=== PATIENT | female | born 1985 | race Caucasian/White ===

== ENCOUNTER 2019-04-24 23:57 | Emergency (ER) | payer MEDICAID, OTHER ==
[~2019-04-24] VITALS: Ht 162.6 cm; Wt 52.6 kg
--- NOTE | 2019-04-25 00:50 | NUR ---
PATIENT WALKED IN FOR ABSCESS ON RIGHT UNDER ARM, PANIFUL TO TOUCH.
[2019-04-25] MEDS ORDERED: LIDOCAINE 1%-EPI 1:100,000 20 ML VIAL TP ONE (01:00)
--- NOTE | 2019-04-25 01:05 | NUR ---
DR. RYAN AT BEDSIDE FOR MSE.
--- NOTE | 2019-04-25 01:45 | NUR ---
PATIENT WOUND SITE CLEANSED WITH NS, PAT DRY, AND REINFORCED WITH 4 X 4 GAUZE. PT TOLERATED WELL. Patient discharged to home in stable conditon. Written and verbal after care instructions given. Patient verbalizes understanding of instructions. PATIENT WALKED OUT IN STABLE CONDITION.
[2019-04-25 02:03] VITALS: BP 115/77
== END 2019-04-25 01:55 | disposition home or self-care (01) ==
LOC: ER 04-25 00:01
DX: L02.411 Cutaneous abscess of right axilla (principal); L03.113 Cellulitis of right upper limb; F31.9 Bipolar disorder, unspecified
CPT/HCPCS: 10060; 99283; J3490; A4663

== ENCOUNTER 2023-08-18 10:39 | Emergency (ER) | payer MEDICAID ==
[~2023-08-18] VITALS: Ht 162.6 cm; Wt 52.6 kg
[2023-08-18 11:06] VITALS: O2SAT 96
[2023-08-18] MEDS ORDERED: predniSONE 50 MG TABLET PO ONE (13:15)
[2023-08-18] MEDS ORDERED: IBUPROFEN 400 MG TABLET PO ONE (13:15)
[2023-08-18] MEDS ORDERED: DEXAMETHASONE SOD PHOSPHATE 4 MG INJ IV ONE (13:15)
[2023-08-18] MEDS ORDERED: IV NORMAL SALINE 1000 ML BAG IV ONE (13:15)
[2023-08-18] MEDS ORDERED: CLINDAMYCIN HCL 150 MG CAPSULE PO ONE (13:15)
[2023-08-18] MEDS ORDERED: CLINDAMYCIN PHOSPHATE IV 600 MG in IV DEXTROSE 5% 100 ML IV ONE (13:15)
[2023-08-18] MEDS ORDERED: CLIN300C12 PO (13:20)
[2023-08-18] MEDS ORDERED: predniSONE 50 MG TABLET ONE (13:41)
[2023-08-18] MEDS ORDERED: IBUPROFEN 400 MG TABLET ONE (13:41)
[2023-08-18] MEDS ORDERED: CLINDAMYCIN HCL 300 MG CAPSULE ONE (13:42)
[2023-08-18 13:45] LABS: BASOPHILS % (AUTO) 0.2 % (0.0-2.0); EOSINOPHILS # (AUTO) 0.1 K/uL (0.0-0.7); EOSINOPHILS % (AUTO) 0.5 % (0.0-7.0); HEMATOCRIT 41.8 % (31.2-41.9); HEMOGLOBIN 13.9 g/dL (10.9-14.3); LYMPHOCYTES # (AUTO) 2.3 K/uL (0.8-4.8); LYMPHOCYTES % (AUTO) 14.3 % (20.5-51.5); MEAN CORPUSCULAR HGB CONC 33 g/dL (32.3-35.6); MEAN CORPUSCULAR VOLUME 84.6 fL (75.5-95.3); MONOCYTES % (AUTO) 6.4 % (0.0-11.0); NEUTROPHILS # (AUTO) 12.5 K/uL (1.8-8.9); NEUTROPHILS % (AUTO) 78.6 % (38.5-71.5); PLATELET COUNT (AUTO) 297 K/uL (179-408); RED BLOOD CELL COUNT(AUTO) 4.94 MIL/uL (3.63-4.92); RED CELL DISTRIBUTION WIDTH 14.3 % (12.3-17.7); WHITE BLOOD COUNT (AUTO) 15.8 K/uL (3.8-11.8)
[2023-08-18 13:56] LABS: DIFFERENTIAL COMMENT 1
[2023-08-18 14:14] LABS: ALBUMIN 3.1 g/dL (3.4-5.0); BILIRUBIN,DIRECT 0.1 mg/dL (0.0-0.2); CALCIUM 9.5 mg/dL (8.5-10.1); CREATININE 0.7 mg/dL (0.6-1.3); POTASSIUM 3.8 mmol/L (3.5-5.1); TOTAL PROTEIN, SERUM 8.5 g/dL (6.4-8.2)
[2023-08-18 14:22] LABS: BILIRUBIN,TOTAL 0.1 mg/dL (0.2-1.0)
== END 2023-08-18 13:53 | disposition home or self-care (01) ==
LOC: ER 10:39
DX: J45.909 Unspecified asthma, uncomplicated (principal); I88.8 Other nonspecific lymphadenitis; R07.89 Other chest pain; Z79.2 Long term (current) use of antibiotics
CPT/HCPCS: 99284; 71045; 80076; 80048; 85025; 85730; 87040 ×2; 36415; 70360; 83605; J7512; J3490; A4606; A4663